=== PATIENT | female | born 1990 | race Caucasian/White ===

== ENCOUNTER 2018-07-07 17:29 | Emergency (ER) | payer OTHER ==
[2018-07-07 17:39] VITALS: BP 143/93; PULSE 80; TEMP 98.8; BMI 46.8
--- NOTE | 2018-07-07 17:39 | PDOC ---
Rapid Medical Evaluation Time Seen by Provider: 07/07/18 17:36 Medical Evaluation: Allergies Allergy/AdvReac Type Severity Reaction Status Date / Time No Known Allergies Allergy Verified 07/05/18 17:44 I have performed a brief in-person evaluation of this patient. The patient presents with a chief complaint of: left breast foul smelling discharge s/p breast reduction surgery 2 weeks ago at [facility]. She was here on 07/05 but [facility]. She denies fever. She states she needs more percocet. Pertinent physical exam findings: none I have ordered the following: labs The patient will proceed to the ED for further evaluation. Discharge Disposition - Diagnosis Wound drainage - Referrals - Patient Instructions - Post Discharge Activity
[2018-07-07 19:12] LABS: BASO % 0.9 % (0-2.0); EOS % 3.1 % (0-4.5); HEMATOCRIT 25.1 % (32.4-45.2); HEMOGLOBIN 7.7 GM/dL (10.7-15.3); LYMPH % 22.5 % (8-40); MCHC 30.7 g/dl (32.0-36.0); MEAN CELL VOLUME 59.6 fl (80-96); MEAN PLT VOLUME 9.2 fl (7.5-11.1); MONO % 6.4 % (3.8-10.2); NEUT % 67.1 % (42.8-82.8); PLATELET COUNT 385 K/MM3 (134-434); RBC 4.22 M/mm3 (3.60-5.2); RDW 18.4 % (11.6-15.6); WHITE BLOOD COUNT 9.5 K/mm3 (4.0-10.0)
[2018-07-07 19:16] LABS: MCH 18.3 pg (25.7-33.7)
--- NOTE | 2018-07-07 19:25 | PDOC ---
History of Present Illness - General Chief Complaint: Wound Stated Complaint: INFECTION Time Seen by Provider: 07/07/18 17:36 - History of Present Illness Initial Comments: 07/07/18 19:20 Tess Carrasquillo is an otherwise healthy 28yo woman who presents 2 weeks s/p breast reduction surgery with infection of her b/l surgical incisions. She reports that she had a post op follow up appointment last week, but at that point the drainage was minimal and she still had steri strips in place over her incisions. However, these have begun to fall off, and she has noticed increased drainage, warmth, and tenderness around the incisions. She has attempted to place dry gauze over the wounds and reports that they are stained with thick, yellow drainage when removed. Ms Carrasquillo reports that she did take an antibiotic as directed for 7 days following her surgery. She denies fevers or chills, and she denies a history of diabetes. She does not have any underlying medical conditions and does not take medications at home. Past History - Past Medical History Allergies/Adverse Reactions: Allergies Allergy/AdvReac Type Severity Reaction Status Date / Time No Known Allergies Allergy Verified 07/07/18 17:39 Home Medications: Ambulatory Orders Amox-Tr/K Cl [Augmentin - 875Mg Tablet] 1 tab PO BID #20 tablet 07/07/18 COPD: No - Surgical History Abdominal Surgery: Yes (gastric sleeve 2009) - Suicide/Smoking/Psychosocial Hx Smoking History: Never smoked Information on smoking cessation initiated: No Hx Alcohol Use: No Drug/Substance Use Hx: No Substance Use Type: None Review of Systems - Review of Systems Comments:: General: No fevers, no chills, no weight or appetite change, no malaise HEENT: No changes in vision, no changes in hearing, no congestion, no sore throat CV: No chest pain, no palpitations, no LE edema Pulm: No SOB, no cough, no wheezing GI: No nausea or vomiting, no change in bowel habits, no melena : No frequency, no urgency, no dysuria Musc: No back pain, no joint swelling, no recent injury Skin: See HPI Endo: No excessive thirst, no heat/cold intolerance Heme: No unusual bruising or bleeding, no swollen glands Neuro: No syncope, no numbness/tingling, no focal weakness Vasc: No claudication Psych: No recent change in mood, no SI or HI *Physical Exam - Vital Signs Last Vital Signs Temp Pulse Resp BP Pulse Ox 98.8 F 80 20 143/93 99 07/07/18 17:36 07/07/18 17:36 07/07/18 17:36 07/07/18 17:36 07/07/18 17:36 - Physical Exam Comments: General: Comfortable, no acute distress HEENT: PERRL, EOMI, MMM, voice normal, normal neck ROM, no LAD Cards: RRR, no murmur appreciated Pulm: Comfortable on room air, clear to auscultation bilaterally Breast: s/p b/l breast reduction surgery. Bilaterally, erythematous and indurated around incisions, especially at intersection of vertical midline and inferior horizontal incisions. Fibrinous exudate and thin watery drainage noted. No sean pus. Small dehisence b/l at intersection of incisions. Tender to palpation. Abd: Soft, nontender, nondistended Ext: Atraumatic. No LE edema. ROM intact. Strength 5/5 and equal bilaterally Vasc: Extremities WWP. Palpable radial and pedal pulses bilaterally Neuro: A&Ox3, CN grossly intact, normal speech, motor/sensory grossly intact and symmetric Psych: Mood appropriate to situation ED Treatment Course - LABORATORY CBC & Chemistry Diagram: 07/07/18 18:50 07/07/18 18:50 - ADDITIONAL ORDERS Additional order review: 07/07/18 18:50 RBC 4.22 MCV 59.6 L MCHC 30.7 L RDW 18.4 H MPV 9.2 Neutrophils % 67.1 Lymphocytes % 22.5 Monocytes % 6.4 Eosinophils % 3.1 Basophils % 0.9 Medical Decision Making - Medical Decision Making 07/07/18 19:38 Tess Carrasquillo is an otherwise healthy 28yo woman two weeks s/p bilateral breast reduction surgery who presents with surgical incision infection of both breasts. - Will give a dose of unasyn in the ED - Prescribing 10 days of augmentin - No sign of systemic infection, no indication for hospital admission at this time - Strongly advised Ms Carrasquillo that she needs to be seen by her breast surgeon as soon as possible. There is no breast surgeon available at [facility] currently, and she should be seen by the physician who completed her surgery. She stated understanding - Return precautions discussed at length Seen and discussed with Dr Miguel. *DC/Admit/Observation/Transfer Diagnosis at time of Disposition: Wound drainage Surgical wound infection Qualifiers: Encounter type: initial encounter Qualified Code(s): T81.4XXA - Infection following a procedure, initial encounter - Discharge Dispostion Disposition: HOME Condition at time of disposition: Good Decision to Admit order: No - Prescriptions Prescriptions: Amox-Tr/K Cl [Augmentin - 875Mg Tablet] 1 tab PO BID #20 tablet - Referrals Referrals: Frank Fam MD, MD [Primary Care Provider] - - Patient Instructions Printed Discharge Instructions: DI for Wound Infection Additional Instructions: Discharge Instructions: - You were seen in the ED for infection of your surgical incisions - You have been prescribed an antibiotic to help control this infection. Please take this medication twice per day until it is completed. You should start taking it tomorrow morning as you received a dose of the same medication by IV while in the emergency room - Reasons to return to the ED: - If you have a fever to 101F or shaking shills - If your incisions open - If you have significantly increased drainage or bleeding from your incisions - If your symptoms worsen dramatically (e.g. worsening pain) - If the redness and warmth around your incisions continues to spread - You should be seen early next week by your surgeon if you cannot be seen over the weekend - Post Discharge Activity
[2018-07-07 19:40] LABS: ALBUMIN 3.1 g/dl (3.4-5.0); ANION GAP 9 (8-16); BLOOD UREA NITROGEN 10 mg/dL (7-18); CALCIUM 8.7 mg/dL (8.5-10.1); CHLORIDE 110 mmol/L (98-107); CO2 25 mmol/L (21-32); GLUCOSE,RANDOM 90 mg/dL (74-106); POTASSIUM 4.1 mmol/L (3.5-5.1); SODIUM 144 mmol/L (136-145)
--- NOTE | 2018-07-07 19:41 | PDOC ---
Attending Attestation - Resident Resident Name: LiKarolina - ED Attending Attestation I have performed the following: I have examined & evaluated the patient, The case was reviewed & discussed with the resident, I agree w/resident's findings & plan, Exceptions are as noted <Simeon Miguel - Last Filed: 07/07/18 19:41> - HPI HPI: 07/07/18 20:35 The patient is a 28 year old female with no significant PMH who presents to the emergency department with breast wounds for about 2 weeks. The patient reports that she has breast reduction surgery at [facility] about 2 weeks about by which she was subsequently put on antibiotics. The patient reports that she had her 1 week follow up. The patient states that she noticed sandra increased drainage from her surgical sites that she describes as yellowish, thick and foul smell. The patient denies any fever or pain. The patient denies any other symptoms. She denies any chills, nausea, vomit, diarrhea, constipation or urinary symptoms. She denies any chest pain, shortness of breath, headache and dizziness. The patient denies any other complaints PCP: Dr. Fam - Physicial Exam PE: 07/07/18 20:35 GENERAL: Well developed, well nourished. Awake and alert. No acute distress. HEENT: Normocephalic, atraumatic. PERRLA, EOMI. No conjunctival pallor. Sclera are non- icteric. Moist mucous membranes. Oropharynx is clear. NECK: Supple. Full ROM. No JVD. Carotid pulses 2+ and symmetric, without bruits. No thyromegaly. No lymphadenopathy. CARDIOVASCULAR: Regular rate and rhythm. No murmurs, rubs, or gallops. Distal pulses are 2+ and symmetric. PULMONARY: No evidence of respiratory distress. Lungs clear to auscultation bilaterally. No wheezing, rales or rhonchi. ABDOMINAL: Soft. Non-tender. Non-distended. No rebound or guarding. No organomegaly. Normoactive bowel sounds. MUSCULOSKELETAL Normal range of motion at all joints. No bony deformities or tenderness. No CVA tenderness. EXTREMITIES: No cyanosis. No clubbing. No edema. No calf tenderness. SKIN: (+)chest: bilateral draining wounds under both breasts. Open wounds. Slightly erythematous. Yellow discharge. Slightly malodorous. Warm and dry. Normal capillary refill. No rashes. No jaundice. NEUROLOGICAL: Alert, awake, appropriate. Cranial nerves 2-12 intact. No deficits to light touch and temperature in face, upper extremities and lower extremities. No motor deficits in the in face, upper extremities and lower extremities. Normoreflexic in the upper and lower extremities. Normal speech. Toes are down- going bilaterally. Gait is normal without ataxia. PSYCHIATRIC: Cooperative. Good eye contact. Appropriate mood and affect. Documentation prepared by Kate Iverson, acting as medical clerical assistant for Simeon Miguel DO. <Kate Iverson - Last Filed: 07/07/18 20:36>
[2018-07-07] MEDS ORDERED: AMPICILLIN NA/SULBACTAM NA 3 GM in SODIUM CHLORIDE 100 ML IVPB ONE (19:49)
[2018-07-07 19:54] LABS: ALK PHOS 108 U/L (45-117); BILIRUBIN,TOTAL 0.1 mg/dL (0.2-1.0); CREATININE 0.7 mg/dL (0.55-1.02); SGOT/AST 13 U/L (15-37); SGPT/ALT 15 U/L (12-78); TOT PROT 6.7 g/dl (6.4-8.2)
[2018-07-07 21:21] LABS: ANISOCYTOSIS 2+; MACROCYTOSIS 2+; OVALOCYTE 1+
[2018-07-07 21:22] LABS: PLATELET ESTIMATE ADEQUATE
== END 2018-07-07 20:55 | disposition home or self-care (01) ==
LOC: JER 17:29
DX: T81.4XXA Infection following a procedure, initial encounter (principal); T81.89XA Other complications of procedures, not elsewhere classified, initial encounter; Y83.8 Other surgical procedures as the cause of abnormal reaction of the patient, or of later complication, without mention of misadventure at the time of the procedure; Y92.9 Unspecified place or not applicable
CPT/HCPCS: 36415; 80053; 85025; 99281-25

== ENCOUNTER 2018-11-29 19:50 | Emergency (ER) | payer OTHER ==
[2018-11-29 20:03] VITALS: TEMP 98; BMI 46.8
--- NOTE | 2018-11-29 21:26 | PDOC ---
History of Present Illness - General Chief Complaint: Vaginal Sxs Stated Complaint: RASH Time Seen by Provider: 11/29/18 21:11 - History of Present Illness Initial Comments: 11/29/18 21:25 28 yo F with h/o gastric sleeve, , who p/w vaginal itching and redness. Patient reports 2 days of vaginal burning, itching, and redness. Denies vaginal discharge or abnormal vaginal bleeding. Patient noted redness improved, but itching worse after shaving. Has not attempted OTC symptom control. Denies analgesia. Does not recall last LMP. Patient denies N/V, F,C, CP, SOB, urinary complaints, abdominal pain, diarrhea, constipation, hematuira, BPR, vaginal bleeding, lightheadedness, weakness, sensory changes. PMHx: as noted above. ROS: as noted SHx: Denies Etoh, IVDA, tobacco use. A1. Currently sexually active with 1 partner. + IUD. Intermittent barrier protection. Denies h/o STI. Allergies: NKDA Past History - Past Medical History Allergies/Adverse Reactions: Allergies Allergy/AdvReac Type Severity Reaction Status Date / Time No Known Allergies Allergy Verified 11/29/18 20:03 Home Medications: Ambulatory Orders NK [No Known Home Medication] 11/30/18 COPD: No - Surgical History Abdominal Surgery: Yes (gastric sleeve 2009) - Suicide/Smoking/Psychosocial Hx Smoking History: Never smoked Have you smoked in the past 12 months: No Information on smoking cessation initiated: No Hx Alcohol Use: No Drug/Substance Use Hx: No Substance Use Type: None Review of Systems - Review of Systems Comments:: 11/29/18 21:37 GENERAL/CONSTITUTIONAL: No fever or chills. No weakness. HEAD, EYES, EARS, NOSE AND THROAT: No change in vision. No ear pain or discharge. No sore throat. CARDIOVASCULAR: No chest pain or shortness of breath RESPIRATORY: No cough, wheezing, or hemoptysis. GASTROINTESTINAL: No nausea, vomiting, diarrhea or constipation. GENITOURINARY: + Vaginal itching/redness. No dysuria, frequency, or change in urination. MUSCULOSKELETAL: No joint or muscle swelling or pain. No neck or back pain. SKIN: No rash NEUROLOGIC: No headache, vertigo, loss of consciousness, or change in strength/ sensation. ENDOCRINE: No increased thirst. No abnormal weight change HEMATOLOGIC/LYMPHATIC: No anemia, easy bleeding, or history of blood clots. ALLERGIC/IMMUNOLOGIC: No hives or skin allergy. *Physical Exam - Vital Signs Last Vital Signs Temp Pulse Resp BP Pulse Ox 98.0 F 240 H 18 130/73 100 11/29/18 20:01 11/29/18 20:01 11/29/18 20:01 11/29/18 20:01 11/29/18 20:01 - Physical Exam Comments: 11/29/18 21:31 GENERAL: Awake, alert, and fully oriented, in no acute distress HEAD: No signs of trauma, normocephalic, atraumatic EYES: PERRLA, EOMI, sclera anicteric, conjunctiva clear ENT: Hearing grossly normal, nares patent, oropharynx clear without exudates. Moist mucosa NECK: Normal ROM, supple, no lymphadenopathy, JVD, or masses LUNGS: No distress, speaks full sentences, clear to auscultation bilaterally HEART: Regular rate and rhythm, normal S1 and S2, no murmurs, rubs or gallops, peripheral pulses normal and equal bilaterally. ABDOMEN: Soft, NDS, nontender, normoactive bowel sounds. No guarding, no rebound. No masses. Neg CVA ttp. GENITOURINARY: Chaperoned By Carrie Bean. Erythematous labia majora, othwerwise nml appearing external genitalia, + clear thin white discharge in vaginal vault. Neg lesions, absent blood in vaginal vault. Cervical OS closed. Neg adenexal ttp, Neg CMT on BM. EXTREMITIES : Normal inspection, Normal range of motion, no edema. No clubbing or cyanosis. SKIN: Warm, Dry, normal turgor, no rashes or lesions noted Moderate Sedation - Procedure Monitoring Vital Signs: Procedure Monitoring Vital Signs Temperature 98.0 F 11/29/18 20:01 Pulse Rate 240 H 11/29/18 20:01 Respiratory Rate 18 11/29/18 20:01 Blood Pressure 130/73 11/29/18 20:01 O2 Sat by Pulse Oximetry (%) 100 11/29/18 20:01 Medical Decision Making - Medical Decision Making 11/29/18 21:31 28 yo F with h/o gastric sleeve, , who p/w vaginal itching and redness. Vitals otherwise wnl, AF, A&Ox3. + Erythematous labia majora, othwerwise nml appearing external genitalia, + clear thin white discharge in vaginal vault. No urinary complaints, low suspicion cystsitis, pyelonephritis. Absent abdominal ttp. Low suspicion appendicitis, ovarian pathology, PID. Assess for . Likely d/t vaginitis Ed course: UA, HCG, G/C 11/29/18 22:21 Flagyl 500 mg Nystatin cream sent to pharmacy 11/29/18 22:45 UA: Neg HCG: Neg Pt. stable for d/c with return precautions. Advised to f/u with PMD. 11/29/18 22:55 BP 123/85, HR 68 *DC/Admit/Observation/Transfer Diagnosis at time of Disposition: Vaginitis Qualifiers: Chronicity: acute Qualified Code(s): N76.0 - Acute vaginitis - Referrals Referrals: Frank Fam MD, MD [Primary Care Provider] - - Patient Instructions Printed Discharge Instructions: DI for Vaginal Itching Additional Instructions: Please return to the emergency department with any new or worsening symptoms or concerns. Please follow up with your primary care physician within 72 hours. Please apply topical Nystatin cream to vagina two times per day. - Post Discharge Activity - Attestations Physician Attestion: 11/29/18 22:46 I attest to the information provided in this note.
[2018-11-29 22:07] LABS: URINE APPEARANCE CLEAR; URINE BILIRUBIN NEGATIVE (<2.0 mg/dL); URINE COLOR YELLOW; URINE GLUCOSE (UA) NEGATIVE (NEGATIVE); URINE KETONE TRACE (NEGATIVE); URINE LEUK ESTERASE NEGATIVE (NEGATIVE); URINE NITRITE NEGATIVE (NEGATIVE); URINE PROTEIN 1+ (NEGATIVE)
[2018-11-29 22:10] LABS: HCG,QUALITATIVE URINE Negative
--- NOTE | 2018-11-29 22:14 | PDOC ---
Attending Attestation - Resident Resident Name: EranTreeNoe - ED Attending Attestation I have performed the following: I have examined & evaluated the patient, The case was reviewed & discussed with the resident, I agree w/resident's findings & plan - HPI HPI: 11/29/18 22:14 28 yo F with h/o gastric sleeve, , who p/w vaginal itching and redness. Patient reports 2 days of vaginal burning, itching, and redness. - Physicial Exam PE: 11/30/18 00:33 NAD, well appearing, PERRL, EOMI, MMM, nl conjunctiva, anicteric; neck supple. lungs clear, RRR, abdomen soft nontender. CHRISTIE x4, no focal neuro deficits. No peripheral edema. normal color for ethnicity, WWP. pelvic exam by resident, see note. +white/garcia discharge. vulvar erythema. - Medical Decision Making 11/30/18 00:34 hpi as documented VS wnl, no fever. recheck VS, with normal HR, initial likely error. UA neg for infection. neg preg test. 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 DC in stable condition. pt made aware of impression and plan, agreeable. 11/30/18 00:35 11/30/18 00:35
[2018-11-29 22:16] LABS: EPI CELLS FEW /HPF (FEW); URINE MUCUS MANY
[2018-11-29] MEDS ORDERED: metroNIDAZOLE 250 MG TABLET PO ONE ×2 (22:24→23:54)
[2018-11-29] MEDS ORDERED: metroNIDAZOLE 250 MG TABLET ONE (23:08)
[2018-11-29 23:49] VITALS: BP 123/85; PULSE 68
[2018-11-30] MEDS ORDERED: metroNIDAZOLE 250 MG TABLET ONE (00:27)
== END 2018-11-30 01:00 | disposition home or self-care (01) ==
LOC: JER 19:50 → JERFT 19:50 → JER 11-30 01:00
DX: N76.0 Acute vaginitis (principal); Z98.84 Bariatric surgery status
CPT/HCPCS: 36415; 81003; 81015; 84703; 87491; 87591; 99282-25